=== PATIENT | female | born 1960 | race Caucasian/White ===

== ENCOUNTER 2017-12-20 20:43 | Inpatient (IN) | payer BC, OTHER ==
[~2017-12-20] VITALS: Ht 162.6 cm; Wt 88.5 kg
[2017-12-20] MEDS ORDERED: LACTATED RINGERS 1,000 ML IV ONE ×2 (20:46→20:58)
--- NOTE | 2017-12-20 20:58 | ED Neurological Problem ---
General Chief Complaint: Overdose Stated Complaint: OD Source: patient, EMS Exam Limitations: intoxication History of Present Illness Date Seen by Provider: Dec 20, 2017 Time Seen by Provider: 20:46 Initial Comments PT presents by EMS with non responsive, Concern for OD of meds. Unable to give any history. EMS Reports that they were called by Family because pt was unresponsive. She has a habiit of OD'ing and also has been red flagged in [place] for narcotic seeking behaviors. She was in town because of her mothers . When EMS arrived she was renteria, sweaty, spO2 or 80s and HR 110 and Systolic 85mmHG. They repositioned head and SpO2 went to 90%. Put O2 on her and were unable to establish IV en route. No meds or IVF given. Allergies and Home Medications Allergies Coded Allergies: No Allergy Information Available (Unverified , 12/20/17) Patient Home Medication List Home Medication List Reviewed: Yes Constitutional: see HPI (unable to give a review of systems secondary to clinical exam limited by her intoxication) Past Bzowlaj-Ruussu-Ffzbhz Hx Patient Social History Alcohol Use: Denies Use Recreational Drug Use: No Smoking Status: Current Everyday Smoker Type Used: Cigarettes Recent Foreign Travel: No Contact w/Someone Who Travel: No Physical Exam Vital Signs Vital Signs - First Documented 12/20/17 21:03 Temp 97.2 Pulse 75 Resp 11 B/P (MAP) 85/56 (66) Pulse Ox 14 O2 Flow Rate 2.00 Capillary Refill : General Appearance: WD/WN, other (mumbling incoherently) HEENT: PERRL/EOMI, normal ENT inspection, TMs normal, pharynx normal Neck: non-tender, normal inspection Respiratory: chest non-tender, lungs clear, normal breath sounds, no respiratory distress, no accessory muscle use Cardiovascular: normal peripheral pulses, regular rate, rhythm, no edema Gastrointestinal: normal bowel sounds, non tender, soft Extremities: normal inspection, no pedal edema, normal capillary refill Crainal Nerves: normal hearing, other (obtunded, answers questions with incoherent garbled speech. Follows commands. GCS 12) Skin: normal color, warm/dry Progress/Results/Core Measures Results/Orders Lab Results Laboratory Tests Test 12/20/17 20:50 12/20/17 21:00 Range/Units Blood Gas Puncture Site rt rad Blood Gas Patient Temperature 97.2 Arterial Blood pH 7.33 *L 7.37-7.43 Arterial Blood Partial Pressure CO2 52 H 35-45 MMHG Arterial Blood Partial Pressure O2 36 *L 79-93 MMHG Arterial Blood HCO3 27 23-27 MMOL/L Arterial Blood Total CO2 29.0 21.0-31.0 MMOL/L Arterial Blood Oxygen Saturation 70 L 94-100 % Arterial Blood Base Excess 1.9 -2.5-2.5 MMOL/L Zackary Test YES-POS Blood Gas Ventilator Setting NO Blood Gas Inspired Oxygen 2L White Blood Count 5.5 4.3-11.0 10^3/uL Red Blood Count 3.98 L 4.35-5.85 10^6/uL Hemoglobin 10.6 L 11.5-16.0 G/DL Hematocrit 33 L 35-52 % Mean Corpuscular Volume 84 80-99 FL Mean Corpuscular Hemoglobin 27 25-34 PG Mean Corpuscular Hemoglobin Concent 32 32-36 G/DL Red Cell Distribution Width 13.7 10.0-14.5 % Platelet Count 195 130-400 10^3/uL Mean Platelet Volume 10.4 7.4-10.4 FL Neutrophils (%) (Auto) 61 42-75 % Lymphocytes (%) (Auto) 26 12-44 % Monocytes (%) (Auto) 8 0-12 % Eosinophils (%) (Auto) 5 0-10 % Basophils (%) (Auto) 1 0-10 % Neutrophils # (Auto) 3.3 1.8-7.8 X 10^3 Lymphocytes # (Auto) 1.4 1.0-4.0 X 10^3 Monocytes # (Auto) 0.4 0.0-1.0 X 10^3 Eosinophils # (Auto) 0.3 0.0-0.3 10^3/uL Basophils # (Auto) 0.1 0.0-0.1 10^3/uL Sodium Level 140 135-145 MMOL/L Potassium Level 3.9 3.6-5.0 MMOL/L Chloride Level 105 98-107 MMOL/L Carbon Dioxide Level 29 21-32 MMOL/L Anion Gap 6 5-14 MMOL/L Blood Urea Nitrogen 20 H 7-18 MG/DL Creatinine 1.07 0.60-1.30 MG/DL Estimat Glomerular Filtration Rate 53 BUN/Creatinine Ratio 19 Glucose Level 156 H 70-105 MG/DL Calcium Level 9.0 8.5-10.1 MG/DL Magnesium Level 2.3 1.8-2.4 MG/DL Total Bilirubin 0.3 0.1-1.0 MG/DL Aspartate Amino Transf (AST/SGOT) 50 H 5-34 U/L Alanine Aminotransferase (ALT/SGPT) 60 H 0-55 U/L Alkaline Phosphatase 112 40-136 U/L Troponin I < 0.30 <0.30 NG/ML C-Reactive Protein High Sensitivity 0.49 0.00-0.50 MG/DL Total Protein 6.6 6.4-8.2 GM/DL Albumin 4.1 3.2-4.5 GM/DL Salicylates Level < 5.0 L 5.0-20.0 MG/DL Acetaminophen Level < 10 L 10-30 UG/ML Serum Alcohol < 10 <10 MG/DL My Orders Orders - RADHA CHRISTINA Lactated Ringers (Lr 1000 Ml Iv Solution (12/20/17 20:46) Ua Culture If Indicated (12/20/17 20:49) Cbc With Automated Diff (12/20/17 20:49) Comprehensive Metabolic Panel (12/20/17 20:49) Alcohol (12/20/17 20:49) Drug Screen Stat (Urine) (12/20/17 20:49) Acetaminophen (12/20/17 20:49) Salicylate (12/20/17 20:49) Ekg Tracing (12/20/17 20:49) Saline Lock/Iv-Start (12/20/17 20:49) Monitor-Rhythm Ecg Trace Only (12/20/17 20:49) Arterial Blood Gas (12/20/17 20:49) Hs C Reactive Protein (12/20/17 20:49) Magnesium (12/20/17 20:49) Troponin I (12/20/17 20:49) Ct Head Wo (12/20/17 20:49) Chest 1 View, Ap/Pa Only (12/20/17 20:49) Saline Lock/Iv-Start (12/20/17 20:49) Saline Lock/Iv-Start (12/20/17 20:58) D5 1/2 Ns 1000 Ml Iv Solution (Dextrose (12/20/17 21:00) Lactated Ringers (Lr 1000 Ml Iv Solution (12/20/17 20:58) Saline Lock/Iv-Start (12/20/17 20:57) Arterial Blood Gas (12/20/17 20:57) Accucheck Stat ONCE (12/20/17 20:59) Medications Given in ED Current Medications Medications Dose Ordered Sig/Petra Route Start Time Stop Time Status Last Admin Dose Admin Dextrose/Sodium Chloride 1,000 ml @ 0 mls/hr ONCE ONCE IV 12/20/17 21:00 12/20/17 21:01 DC 12/20/17 21:59 0 MLS/HR Lactated Ringer's 1,000 ml @ 0 mls/hr Q0M ONCE IV 12/20/17 20:58 12/20/17 21:00 DC 12/20/17 20:47 0 MLS/HR Vital Signs/I&O Vital Sign - Last 12Hours 12/20/17 21:03 Temp 97.2 Pulse 75 Resp 11 B/P (MAP) 85/56 (66) Pulse Ox 14 O2 Flow Rate 2.00 Progress Note : Time: 23:18 Progress Note Unknown intoxication elevation mentions that she wanted to sleep and she took duloxetine tonight. No mention of how much or if anything else. She denies any illicit drugs or alcohol use. After some fluids she is a little more rales than able to answer a few questions tell her height and weight but still can't give much of a history of what happened tonight other than she was in [place] for her mother's . Put a central line in here and gave her a liter fluids with minimal improvement in her blood pressure we'll give her another liter. Discussed with poison control and we went over her med list as well as her statements that she wanted to sleep and may have taken some Loxitane as well as has benzos around her. They recommend some symptomatic support. Duloxetine may put her at higher risk for serotonin syndrome since her own medication will definite cause drowsiness and possibly hypertension which we treated with copious IV fluids and if we need pressors the first one she chooses norepinephrine. ECG Initial ECG Impression Date: Dec 20, 2017 Initial ECG Impression Time: 23:03 Initial ECG Rate: 68 Initial ECG Rhythm: Normal Sinus Initial ECG Intervals: QT (473) Initial ECG Impression: Normal Comment No ST segment elevation or depression. Diagnostic Imaging Diagonstic Imaging: Xray Plain Films/CT/US/NM/MRI: chest Comments VIA [facility], [facility]. [place], [place] NAME: MAHSA ERICKSON [facility] REC#: [id number] PT STATUS: REG ER : 1960 PHYSICIAN: RADHA CHRISTINA MD ADMIT DATE: 12/20/17/ER Draft Date of Exam:12/20/17 CHEST 1 VIEW, AP/PA ONLY INDICATION: Evaluate line placement. FINDINGS: There is a right internal jugular central venous catheter in place with its tip at the cavoatrial junction. Heart size is normal. Mediastinum is unremarkable. There is no pleural effusion or pneumothorax. There are patchy bibasilar infiltrates. IMPRESSION: Patchy bibasilar infiltrates, right greater than left. The central venous cathter is in satisfactory position. Dictated on workstation # [id number] Dict: 12/20/172145 Trans: 12/20/17 2151 MARILEE [id number] Interpreted by: ABDI CURTIS MD Electronically signed by: Reviewed: Reviewed by Ga Diagonstic Imaging: Xray Plain Films/CT/US/NM/MRI: chest Comments Central line withdrawn about 2 cm. Reviewed: Reviewed by Ga Diagonstic Imaging: CT Plain Films/CT/US/NM/MRI: c-spine, head Comments No acute intracranial or cervical spinal abnormalities noted. Reviewed: Reviewed by Ga Departure Communication (Admissions) Time/Spoke to Admitting Phy: 23:28 Communication Discussed case lab imaging findings and plan with Dr. Sarmiento. Impression Impression: Primary Impression: Drug overdose Qualified Codes: T50.904A - Poisoning by unspecified drugs, medicaments and biological substances, undetermined, initial encounter Disposition: ADMITTED INPATIENT Condition: Stable Admissions Decision to Admit Reason: Admit from ER (General) Decision to Admit/Date: Dec 20, 2017 Time/Decision to Admit Time: 23:28 Departure-Patient Inst. Patient Instructions: ALCOHOL AND SUBSTANCE ABUSE Copy Copies To 1: FROYLAN SARMIENTO TITUS J Dec 20, 2017 20:58
[2017-12-20] MEDS ORDERED: D5 1/2 NS 1000 ML IV SOLUTION 1,000 ML IV ONE (21:00)
[2017-12-20 21:06] LABS: ABG BASE EXCESS 1.9 MMOL/L (-2.5-2.5); ABG OXYGEN SATURATION 70 % (94-100); ABG PCO2 52 MMHG (35-45)
[2017-12-20] MEDS ORDERED: ZOLP10TA5 PO (21:08)
[2017-12-20] MEDS ORDERED: PREG75CA PO (21:08)
[2017-12-20] MEDS ORDERED: ALPR1TAB7 PO (21:08)
[2017-12-20] MEDS ORDERED: DICL50TA6 PO (21:08)
[2017-12-20] MEDS ORDERED: LAMO100T PO (21:08)
[2017-12-20] MEDS ORDERED: TIZA6CAP9 PO (21:08)
[2017-12-20] MEDS ORDERED: QUET100T69 PO (21:08)
[2017-12-20] MEDS ORDERED: HYDR-3816 PO (21:08)
[2017-12-20] MEDS ORDERED: LORA2TAB PO (21:08)
[2017-12-20] MEDS ORDERED: PNNLX50T PO (21:08)
[2017-12-20] MEDS ORDERED: GABA-488 PO (21:08)
[2017-12-20 21:12] LABS: ABG PH 7.33 (7.37-7.43); ABG PO2 36 MMHG (79-93)
[2017-12-20 21:13] LABS: ALLENS TEST YES-POS; INSPIRED O2 2L; PATIENT TEMP 97.2; VENTILATOR NO
[2017-12-20 21:28] LABS: BASOPHILS # (AUTO) 0.1 10^3/uL (0.0-0.1); BASOPHILS % (AUTO) 1 % (0-10); EOSINOPHILS # (AUTO) 0.3 10^3/uL (0.0-0.3); EOSINOPHILS % (AUTO) 5 % (0-10); HEMATOCRIT 33 % (35-52); HEMOGLOBIN 10.6 G/DL (11.5-16.0); LYMPHOCYTES # (AUTO) 1.4 X 10^3 (1.0-4.0); LYMPHOCYTES % (AUTO) 26 % (12-44); MEAN CORPUSCULAR HEMOGLOBIN 27 PG (25-34); MEAN CORPUSCULAR HGB CONC 32 G/DL (32-36); MEAN CORPUSCULAR VOLUME 84 FL (80-99); MEAN PLATELET VOLUME 10.4 FL (7.4-10.4); MONOCYTES # (AUTO) 0.4 X 10^3 (0.0-1.0); MONOCYTES % (AUTO) 8 % (0-12); NEUTROPHILS # (AUTO) 3.3 X 10^3 (1.8-7.8); NEUTROPHILS % (AUTO) 61 % (42-75); PLATELET COUNT 195 10^3/uL (130-400); RED BLOOD COUNT 3.98 10^6/uL (4.35-5.85); RED CELL DISTRIBUTION WIDTH 13.7 % (10.0-14.5); WHITE BLOOD COUNT 5.5 10^3/uL (4.3-11.0)
[2017-12-20 21:47] LABS: ACETAMINOPHEN < 10 UG/ML (10-30); ALANINE AMINOTRANSFERASE 60 U/L (0-55); ALBUMIN 4.1 GM/DL (3.2-4.5); ALKALINE PHOSPHATASE 112 U/L (40-136); BILIRUBIN,TOTAL 0.3 MG/DL (0.1-1.0); BUN/CREATININE RATIO 19; CARBON DIOXIDE 29 MMOL/L (21-32); CHLORIDE 105 MMOL/L (98-107); CREATININE SERUM 1.07 MG/DL (0.60-1.30); GFR ESTIMATED 53; GLUCOSE 156 MG/DL (70-105); MAGNESIUM 2.3 MG/DL (1.8-2.4); POTASSIUM 3.9 MMOL/L (3.6-5.0); SALICYLATE < 5.0 MG/DL (5.0-20.0); SODIUM 140 MMOL/L (135-145); TOTAL PROTEIN 6.6 GM/DL (6.4-8.2)
--- NOTE | 2017-12-20 21:52 | Diagnostic Imaging Report ---
INDICATION: Evaluate line placement. FINDINGS: There is a right internal jugular central venous catheter in place with its tip at the cavoatrial junction. Heart size is normal. Mediastinum is unremarkable. There is no pleural effusion or pneumothorax. There are patchy bibasilar infiltrates. IMPRESSION: Patchy bibasilar infiltrates, right greater than left. The central venous cathter is in satisfactory position. Dictated by: Dictated on workstation # [id number]
[2017-12-20] MEDS ORDERED: NS IV 1000 ML 1,000 ML IV ONE (23:14)
[2017-12-20 23:40] LABS: BILIRUBIN,URINE NEGATIVE (NEGATIVE); CLARITY,URINE CLEAR; COLOR,URINE YELLOW; GLUCOSE, URINE (UA) NEGATIVE (NEGATIVE); KETONES,URINE NEGATIVE (NEGATIVE); LEUKOCYTE ESTERASE ,URINE 1+ (NEGATIVE); NITRITE,URINE NEGATIVE (NEGATIVE); PH,URINE 6 (5-9); PROTEIN,URINE 1+ (NEGATIVE); UROBILINOGEN,URINE NORMAL (NORMAL)
[2017-12-20 23:47] LABS: BACTERIA,URINE NEGATIVE /HPF; RBC,URINE RARE /HPF; SQUAMOUS EPITHELIAL CELL,UR RARE /HPF; WBC,URINE RARE /HPF
[2017-12-21] VITALS (14 sets, daily range): BP systolic 116–152; BP diastolic 77–102
[2017-12-21 00:01] LABS: AMPHETAMINE SCREEN, URINE NEGATIVE (NEGATIVE); BARBITURATE SCREEN URINE NEGATIVE (NEGATIVE); BENZODIAZEPINES SCREEN URINE POSITIVE (NEGATIVE); CANNABINOID SCREEN, URINE NEGATIVE (NEGATIVE); COCAINE SCREEN URINE NEGATIVE (NEGATIVE); METHADONE STAT NEGATIVE (NEGATIVE); METHAMPHETAMINE SCREEN URINE S NEGATIVE (NEGATIVE); OPIATE SCREEN URINE POSITIVE (NEGATIVE); OXYCODONE STAT NEGATIVE (NEGATIVE); PROPOXYPHENE STAT NEGATIVE (NEGATIVE); TRICYCLIC ANTIDEPRESSANTS SCRE POSITIVE (NEGATIVE)
[2017-12-21] MEDS: 1/2 NS W/KCL 20 MEQ/L 1,000 ML IV SCH ×2 (01:10→08:04)
[2017-12-21] MEDS ORDERED: CATHETER FLUSH 10 ML SYR IV PRN (01:15)
[2017-12-21] MEDS ORDERED: ONDANSETRON 4 MG/2 ML (SDV) Z0FRAN IV PRN (01:15)
[2017-12-21 03:35] LABS: BASOPHILS % (AUTO) 1 % (0-10); EOSINOPHILS # (AUTO) 0.3 10^3/uL (0.0-0.3); EOSINOPHILS % (AUTO) 5 % (0-10); HEMATOCRIT 32 % (35-52); HEMOGLOBIN 10.1 G/DL (11.5-16.0); LYMPHOCYTES # (AUTO) 1.3 X 10^3 (1.0-4.0); LYMPHOCYTES % (AUTO) 23 % (12-44); MEAN CORPUSCULAR HEMOGLOBIN 27 PG (25-34); MEAN CORPUSCULAR HGB CONC 32 G/DL (32-36); MEAN CORPUSCULAR VOLUME 84 FL (80-99); MONOCYTES # (AUTO) 0.4 X 10^3 (0.0-1.0); MONOCYTES % (AUTO) 7 % (0-12); NEUTROPHILS # (AUTO) 3.8 X 10^3 (1.8-7.8); NEUTROPHILS % (AUTO) 65 % (42-75); PLATELET COUNT 170 10^3/uL (130-400); RED BLOOD COUNT 3.74 10^6/uL (4.35-5.85); RED CELL DISTRIBUTION WIDTH 13.8 % (10.0-14.5); WHITE BLOOD COUNT 5.8 10^3/uL (4.3-11.0)
[2017-12-21] MEDS: ACETAMINOPHEN 500 MG TAB (TYLENOL) PO PRN ×2 (03:41→08:34)
[2017-12-21 04:09] LABS: BUN/CREATININE RATIO 21; CALCIUM 8.5 MG/DL (8.5-10.1); CARBON DIOXIDE 24 MMOL/L (21-32); CHLORIDE 109 MMOL/L (98-107); CREATININE SERUM 0.78 MG/DL (0.60-1.30); GFR ESTIMATED > 60; GLUCOSE 87 MG/DL (70-105); MAGNESIUM 2.1 MG/DL (1.8-2.4); PHOSPHORUS 4.1 MG/DL (2.3-4.7); POTASSIUM 4.3 MMOL/L (3.6-5.0); SODIUM 140 MMOL/L (135-145)
[2017-12-21] MEDS ORDERED: CATHETER FLUSH 10 ML SYR IV SCH (06:00)
--- NOTE | 2017-12-21 07:20 | Diagnostic Imaging Report ---
INDICATION: Line placement. TECHNIQUE: Single frontal view of the chest. COMPARISON: Radiograph from the same day FINDINGS: Lung volumes are low. There are bibasilar opacities, which appear similar to the prior study. There is mild central vascular congestion. The heart appears stable in size. No pleural effusion or pneumothorax is seen. The tip of the right central line projects over the low SVC. No acute osseous abnormality seen. IMPRESSION: 1. The tip of the right central line projects over the low SVC. 2. Low lung volumes with bibasilar airspace opacities and mild central vascular congestion. Dictated by: Dictated on workstation # [id number]
--- NOTE | 2017-12-21 07:21 | Diagnostic Imaging Report ---
PROCEDURE: CT head without contrast. TECHNIQUE: Multiple contiguous axial images were obtained through the brain without the use of intravenous contrast. INDICATION: Altered mental status. COMPARISON: None. FINDINGS: The ventricles and cortical sulci are mildly prominent. No acute intracranial hemorrhage is seen. There is no midline shift or mass effect. Small dural calcifications are noted. No CT evidence of acute territorial ischemia is seen. The calvarium appears intact. The visualized paranasal sinuses are unremarkable. IMPRESSION: 1. No acute intracranial hemorrhage. No CT evidence of acute territorial ischemia. Dictated by: Dictated on workstation # [id number]
[2017-12-21] MEDS ORDERED: ACETAMINOPHEN 325 MG TABLET/CAPLET (TYLENOL) PO PRN (08:30)
[2017-12-21] MEDS ORDERED: ACET1TAB45 PO (08:37)
[2017-12-21] MEDS ORDERED: SUMA50TA2 PO (08:37)
[2017-12-21] MEDS ORDERED: DULO60CA58 PO (08:37)
[2017-12-21] MEDS ORDERED: PANT40TA3 PO (08:37)
--- NOTE | 2017-12-21 10:34 | History & Physical-Hospitalist ---
History of Present Illness HPI/Chief Complaint Patient was not seen prior to leaving AMA Date Seen 12/21/17 Time Seen by Provider: 00:00 Attending Physician Edda Tabares DO PCP No,Local Physician Referring Physician Date of Admission Dec 20, 2017 at 23:30 Home Medications & Allergies Home Medications Reviewed patient Home Medication Reconciliation performed by pharmacy medication reconciliations exercise equipment repair technician and/or nursing. Patients Allergies have been reviewed. Allergies Allergies Coded Allergies No Allergy Information Available (Unverified12/20/17) Past Auryujx-Ohvcdk-Rwvrur Hx Past Med/Social Hx: Reviewed Nursing Past Med/Soc Hx Patient Social History Alcohol Use: Denies Use Recreational Drug Use: No Smoking Status: Never a Smoker Type Used: Cigarettes Physical Abuse Screen: No Sexual Abuse: No Recent Foreign Travel: No Contact w/other who traveled: No Recent Hopitalizations: No Recent Infectious Disease Expo: No Immunizations Up To Date Date of Influenza Vaccine: Jun 25, 2017 Seasonal Allergies Seasonal Allergies: Yes Past Medical History Surgeries: Appendectomy, Gallbladder, Hysterectomy Currently Using CPAP: No Currently Using BIPAP: No Sexually Transmitted Disease: No HIV/AIDS: No Female Reproductive Disorders: Denies Gastrointestinal: Gall Bladder Disease Hearing Impairment: Denies Cancer: Skin Did You Recieve Any Treatments: Yes What Type of Treatment Did You: Surgical Intervention Psychosocial: Sleep Difficulties, Anxiety, Suicide Attempts, Bipolar, Depression History of Blood Disorders: No Adverse Reaction to Blood Borges: No Review of Systems Constitutional: see HPI Physical Exam Physical Exam Vital Signs Vital Signs - First Documented 12/20/17 12/21/17 21:03 00:37 Temp 97.2 Pulse 75 Resp 11 B/P (MAP) 85/56 (66) Pulse Ox 14 O2 Delivery Room Air O2 Flow Rate 2.00 Capillary Refill : Less Than 3 Seconds General Appearance: Other (Patient was not seen prior to leaving AMA) Results Results/Procedures Labs Laboratory Tests 12/20/17 21:00 12/21/17 03:30 Patient resulted labs reviewed. Assessment/Plan Admission Diagnosis Patient was not seen prior to leaving AMA Admission Status: Observation Clinical Quality Measures DVT/VTE Risk/Contraindication: Risk Factor Score Per Nursin RFS Level Per Nursing on Admit: 1=Low/No VTE PPX EDDA TABARES DO Dec 21, 2017 10:34
== END 2017-12-21 09:28 | disposition left against medical advice (07) | DRG 918 ==
LOC: ER 20:45 → ICU 23:30
PROVIDERS: ADMIT Internal Medicine; ATTEND Internal Medicine
PROC: 02HV33Z Insertion of Infusion Device into Superior Vena Cava, Percutaneous Approach (ICD-10-PCS; principal; 2017-12-20)
DX: T43.201A Poisoning by unspecified antidepressants, accidental (unintentional), initial encounter (principal); T43.501A Poisoning by unspecified antipsychotics and neuroleptics, accidental (unintentional), initial encounter; F17.210 Nicotine dependence, cigarettes, uncomplicated
CPT/HCPCS: 36415; 36556; 36600; 36680; 70450; 71045; 80048; 80053; 80306; 80320; 80329; 81000; 82805; 83735; 84100; 84484; 85025; 86141; 87081; 93005; 93041; 96360; 96361